=== PATIENT | male | born 1975 | race Caucasian/White ===

== ENCOUNTER 2017-01-15 11:43 | Emergency (ER) | payer OTHER ==
[~2017-01-15] VITALS: Ht 154.9 cm; Wt 79.0 kg
[2017-01-15] MEDS ORDERED: IBUPROFEN 800 MG TABLET PO ONE (12:15)
[2017-01-15 12:52] VITALS: BP 116/71
== END 2017-01-15 13:02 | disposition home or self-care (01) ==
LOC: EMS 11:45
DX: S82.51XA Displaced fracture of medial malleolus of right tibia, initial encounter for closed fracture (principal); W01.0XXA Fall on same level from slipping, tripping and stumbling without subsequent striking against object, initial encounter; Y93.89 Activity, other specified; Y92.89 Other specified places as the place of occurrence of the external cause; Y99.8 Other external cause status
CPT/HCPCS: 29515; 99284